=== PATIENT | male | born 1970 | race Two or more races ===

== ENCOUNTER 2017-08-13 09:25 | Emergency (ER) | payer MEDICAID ==
[~2017-08-13] VITALS: Ht 188 cm; Wt 111.1 kg
[2017-08-13 09:30] VITALS: BP 141/106
[2017-08-13] MEDS ORDERED: cefTRIAXone SOD 1,000 MG VL IM ONE ×2 (10:15)
[2017-08-13] MEDS ORDERED: LIDOCAINE HCL (LOCAL ANESTH.) 0.5 % 50ML MDV IJ ONE (10:15)
[2017-08-13] MEDS ORDERED: LIDOCAINE 1% (LOCAL ANESTH.) PF 5ml SDV ONE (10:16)
== END 2017-08-13 10:46 | disposition home or self-care (01) ==
LOC: ER 09:25
DX: L03.032 Cellulitis of left toe (principal); E66.9 Obesity, unspecified; Z68.31 Body mass index [BMI] 31.0-31.9, adult
CPT/HCPCS: 96372; 96374; 99284; J0696